=== PATIENT | male | born 1985 | race Caucasian/White ===

== ENCOUNTER 2025-06-04 19:29 | Emergency (ER) | payer OTHER, SELFPAY ==
--- OUTSIDE RECORDS SUMMARY | 2025-06-04 19:31 | XMS_ITS | Clinical Summary ---
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1 cm (5' 10.5) 04/19/2017 2:15 PM CD T Body Mass Index 23.13 04/19/2017 2:15 PM CDT Plan of Treatment Health Maintenance Due Date Last Done Comments Annual Physical 1990 Hepatitis C 2005 Hepatitis B Vaccines (1 of 3 - 19+ 3-dose series) 2006 DTaP, Tdap and Td Vaccines ( 1 - Tdap) 05/29/2011 05/28/2011 COVID-19 Vaccine (2023-2 5 season) 2024 HPV Vaccines Aged Out No longer eligi ble based on patient's age to complete this topic Meningococcal B Vaccine Aged Out No l onger eligible based on patient's age to complete this topic Meningococcal Vaccine Aged Out No kin nita eligible based on patient's age to complete this topic Pneumococcal Vaccine: Pediat rics (0 to 5 Years) and At-Risk Patients (6 to 49 Years) Aged Out No longer eligi ble based on patient's age to complete this topic RSV Immunizations Under 20 Months Aged Out No longer eligible based on patient's age to complete this topic
[2025-06-04 19:36] VITALS: BP 140/87; PULSE 84; RESP 18; TEMP 36.6; O2SAT 98
--- NOTE | 2025-06-04 19:43 | ED.GENADULT ---
HPI - General Adult General Chief complaint: Dental/Oral Stated complaint: Dental/Oral History of Present Illness HPI narrative: Samy Waggoner Is a 40-year-old male presents today with complaints of having right lower dental pain. He states that the tooth broke up about 3 weeks ago and he is having increasing pain over the past couple days. He states he tried to go to the dentist clinics and told he needs to get 2 to a dental surgeon he has been reaching out even with his insurance can not be over 1000 dollars and at this time he states he does not have a condom money to pay for. Denies any fevers or chills no swelling. Related Data Allergies Allergy/AdvReac Type Severity Reaction Status Date / Time No Known Allergies Allergy Verified 06/04/25 19:35 Review of Systems Review of Systems: All systems reviewed & are unremarkable except as noted in HPI and below Exam Narrative: GENERAL: Well-appearing, well-nourished, and in no acute distress. HEAD: Normocephalic, atraumatic. EYES: PERRLA and EOMI. ENT: Nares clear, no rhinorrhea or epistaxis. Mucous membranes moist. Oropharynx without tonsillar hypertrophy exudate or other lesions. + Dental decay to Molar #30 no palpable abscess appreciate on exam NECK: Supple. HEART: Regular rate and rhythm. No murmur heard. Normal peripheral pulses. ABDOMEN: Soft, nontender, nondistended, normal active bowel sounds. EXTREMITIES: Normal range of motion. No edema. SKIN: Warm, dry, no rash. NEURO: No focal deficits. Alert and oriented x3. PSYCH: Normal mood and affect. Course Course Level of Care: Express Care Visit Vital Signs Vital signs: Vital Signs Temperature 36.6 C 06/04/25 19:36 Pulse Rate 84 06/04/25 19:36 Respiratory Rate 18 06/04/25 19:36 Blood Pressure 140/87 06/04/25 19:36 Pulse Oximetry 98 06/04/25 19:36 Oxygen Delivery Room Air 06/04/25 19:36 Temperature 36.6 C 06/04/25 19:36 Pulse Rate 84 06/04/25 19:36 Respiratory Rate 18 06/04/25 19:36 Blood Pressure 140/87 06/04/25 19:36 Pulse Oximetry 98 06/04/25 19:36 Oxygen Delivery Room Air 06/04/25 19:36 Medical Decision Making [facility] Narrative Medical decision making narrative: Patient with worsening dental pain and dental decay. No palpable abscess. No systemic signs or symptoms. Antibiotics course provided. Follow-up instructions given for dental/oral surgery clinics. Patient was given return precautions and discharged home in stable condition. Pulse oximetry interpretation: not hypoxic. Disposition: Discharge to home in stable condition. Impression: Acute dental pain, likely due to dental caries. Medical Records Medical records reviewed: Yes I reviewed the external patient's medical records. Vital Signs Vital Signs: Vital Signs Temperature 36.6 C 06/04/25 19:36 Pulse Rate 84 06/04/25 19:36 Respiratory Rate 18 06/04/25 19:36 Blood Pressure 140/87 06/04/25 19:36 Pulse Oximetry 98 06/04/25 19:36 Oxygen Delivery Room Air 06/04/25 19:36 Temperature 36.6 C 06/04/25 19:36 Pulse Rate 84 06/04/25 19:36 Respiratory Rate 18 06/04/25 19:36 Blood Pressure 140/87 06/04/25 19:36 Pulse Oximetry 98 06/04/25 19:36 Oxygen Delivery Room Air 06/04/25 19:36 vitals reviewed by pr Discharge Plan Discharge Clinical Impression: Toothache, Dental caries Patient Disposition: Home Condition: Stable Instructions: Antibiotic Form, Toothache (ED) Additional Instructions: Start taking the Augmentin twice daily for 10 days Start taking the naproxen twice daily follow up with a dentist as discussed if you develop any worsening symptoms, fevers, chills, swelling the proceed to the ER. 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
== END 2025-06-04 19:52 | disposition home or self-care (01) ==
PROVIDERS: Emergency Provider Nurse Practitioner Family
DX: K08.89 Other specified disorders of teeth and supporting structures (principal); K02.9 Dental caries, unspecified
CPT/HCPCS: 99213; G0463